=== PATIENT | female | born 1945 ===

== ENCOUNTER 2019-05-13 12:34 | Outpatient (CLI) | payer OTHER | END 2019-05-13 13:00 | disposition home or self-care (01) | LOC: RAD 12:34 | DX: M54.5 Low back pain (principal); M53.86 Other specified dorsopathies, lumbar region ==

== ENCOUNTER → 2020-08-08 | Outpatient (CLI) | payer OTHER | END | disposition home or self-care (01) | LOC: MAMO-SONO 13:45 → RAD 14:28 | PROVIDERS: ATTEND Physical Medicine & Rehabilitation | DX: M75.111 Incomplete rotator cuff tear or rupture of right shoulder, not specified as traumatic (principal) ==

== ENCOUNTER 2021-03-12 08:00 | Outpatient (CLI) | payer OTHER | END 2021-03-12 08:30 | disposition home or self-care (01) | LOC: PPH VACUNA 08:00 | PROVIDERS: ATTEND Emergency Medicine Pediatric Emergency Medicine | DX: Z23 Encounter for immunization (principal) ==

== ENCOUNTER 2021-11-05 09:50 | Outpatient (CLI) | payer OTHER | END 2021-11-05 10:00 | disposition home or self-care (01) | LOC: PPH VACUNA 09:50 | PROVIDERS: ATTEND Emergency Medicine Pediatric Emergency Medicine | DX: Z23 Encounter for immunization (principal) ==

== ENCOUNTER 2023-03-30 00:29 | Emergency (ER) | payer OTHER ==
[~2023-03-30] VITALS: Ht 157.5 cm; Wt 63.5 kg
[2023-03-30] MEDS ORDERED: ATACAND4 MG PO (01:56)
[2023-03-30] MEDS ORDERED: SYNTHROID88 MCG PO (01:56)
== END 2023-03-30 04:56 | disposition home or self-care (01) ==
LOC: ER 00:29
DX: F10.129 Alcohol abuse with intoxication, unspecified (principal); F12.929 Cannabis use, unspecified with intoxication, unspecified; Z88.2 Allergy status to sulfonamides